=== PATIENT | male | born 1960 | race Caucasian/White ===

== ENCOUNTER → 2019-11-06 | Outpatient (CLI) | payer OTHER ==
--- NOTE | 2019-11-06 11:00 | ECHOF ---
Referral Reason:I50.9 Congestive heart failure MEASUREMENTS -------- HEIGHT: 193.0 cm WEIGHT: 104.3 kg BP: 188/86 RVIDd: 3.1 cm (< 3.3) IVSd: 1.4 cm (0.6 - 1.1) LVIDd: 4.8 cm (3.9 - 5.3) LVPWd: 1.4 cm (0.6 - 1.1) IVSs: 1.7 cm LVIDs: 3.3 cm LVPWs: 1.9 cm LA Diam: 3.6 cm (2.7 - 3.8) LAESV Index (A-L): 24.36 ml/m Ao Diam: 3.2 cm (2.0 - 3.7) AV Cusp: 2.1 cm (1.5 - 2.6) MV EXCURSION: 20.954 mm (> 18.000) MV EF SLOPE: 157 mm/s (70 - 150) EPSS: 0.3 cm MV E Srinivasa: 0.82 m/s MV DecT: 159 ms MV A Srinivasa: 0.90 m/s MV E/A Ratio: 0.92 AV maxP.58 mmHg AV meanP.01 mmHg RAP: 5.00 mmHg RVSP: 31.81 mmHg TAPSE: 18.81 mm FINDINGS -------- Sinus rhythm. This was a technically good study. The left ventricular size is normal. There is moderate concentric left ventricular hypertrophy. O verall left ventricular systolic function is normal with, an EF between 60 - 65 %. The right ventricle is normal in size. Normal LA size by volume 22+/-6 ml/m2. The right atrium is normal in size. Interatrial and interventricular septum intact. The aortic valve is bicuspid. There is mild to moderate aortic valve sclerosis. There is mild aor tic stenosis present. Peak/mean gradient across the Aortic Valve is 29.58mmHg / 17.01mmHg. The mitral valve is normal. Mild tricuspid regurgitation present. Right ventricular systolic pressure is normal at < 35 mmHg. Trace/mild (physiologic) pulmonic regurgitation. The aortic root size is normal. Normal inferior vena cava with normal inspiratory collapse consistent with estimated right atrial pre ssure of 5 mmHg. There is no pericardial effusion. CONCLUSIONS -------- 1. Sinus rhythm. 2. This was a technically good study. 3. The left ventricular size is normal. 4. There is moderate concentric left ventricular hypertrophy. 5. Overall left ventricular systolic function is normal with, an EF between 60 - 65 %. 6. The right ventricle is normal in size. 7. Normal LA size by volume 22+/-6 ml/m2. 8. The right atrium is normal in size. 9. Interatrial and interventricular septum intact. 10. The aortic valve is bicuspid. 11. There is mild to moderate aortic valve sclerosis. 12. There is mild aortic stenosis present. 13. Peak/mean gradient across the Aortic Valve is 29.58mmHg / 17.01mmHg. 14. The mitral valve is normal. 15. Mild tricuspid regurgitation present. 16. Right ventricular systolic pressure is normal at < 35 mmHg. 17. Trace/mild (physiologic) pulmonic regurgitation. 18. The aortic root size is normal. 19. Normal inferior vena cava with normal inspiratory collapse consistent with estimated right atrial pressure of 5 mmHg. 20. There is no pericardial effusion. PHLEBOTOMIST SUPERVISOR/INSTRUCTOR: Ember Mathews RDCS
== END | disposition home or self-care (01) ==
LOC: RADECHMAIN 08:16
PROVIDERS: ATTEND Internal Medicine
DX: I08.2 Rheumatic disorders of both aortic and tricuspid valves (principal); I50.9 Heart failure, unspecified
CPT/HCPCS: 93306

== ENCOUNTER 2020-02-17 14:34 | Emergency (ER) | payer OTHER ==
[2020-02-17 14:39] VITALS: TEMP 98
--- NOTE | 2020-02-17 15:00 | ED ---
Recheck HPI - General Chief Complaint: Recheck/Abnormal Lab/Rx Stated Complaint: Abnormal labs Time Seen by Provider: 02/17/20 14:43 Source: patient Mode of arrival: ambulatory Limitations: no limitations - History of Present Illness Initial Comments: Patient is a 59-year-old male with history of hypertension, diabetes, presenting to the emergency department with an elevated potassium level. Patient states he had his regular 3 month diabetic checkup last week and was found to have slightly elevated potassium. Patient states he had labs drawn again yesterday and he was called today at work stating his potassium was really high and that he needed to go to the ER. Patient denies any complaints at this time. He denies chest pain, shortness of breath, nausea, vomiting, muscle aches, fatigue. He states they recently changed his medications and put him on a different blood pressure medication, nifedipine, as well as took him off of hydrochloro thiazide. Patient states he has been having bilateral lower leg edema but states this has been improving the last week. He denies any recent fever or chills. He has no further complaints at this time. - Related Data Home Medications Medication Instructions Recorded Confirmed Atorvastatin [Lipitor] 40 mg PO HS 02/17/20 02/17/20 Fluticasone [place] [Flonase 1 spr EA NOSTRIL DAILY 02/17/20 02/17/20 Nas[place]] Hydrochlorothiazide [Hydrodiuril] 25 mg PO DAILY 02/17/20 02/17/20 NIFEdipine [NIFEdipine ER] 30 mg PO DAILY 02/17/20 02/17/20 Quinapril HCl 40 mg PO DAILY 02/17/20 02/17/20 amLODIPine [Norvasc] 5 mg PO DAILY 02/17/20 02/17/20 glipiZIDE XL [Glucotrol Xl] 5 mg PO DAILY 02/17/20 02/17/20 sitaGLIPtin PHOS/metFORMIN HCL 1 tab PO BID 02/17/20 02/17/20 [Janumet Xr 50-1,000 mg Tablet] Allergies Allergy/AdvReac Type Severity Reaction Status Date / Time No Known Allergies Allergy Verified 02/17/20 15:32 Review of Systems ROS Statement: Those systems with pertinent positive or pertinent negative responses have been documented in the HPI. ROS Other: All systems not noted in ROS Statement are negative. Past Medical History Past Medical History: Diabetes Mellitus, Hyperlipidemia, Hypertension History of Any Multi-Drug Resistant Organisms: None Reported Past Surgical History: No Surgical Hx Reported Past Psychological History: No Psychological Hx Reported Smoking Status: Never smoker Past Alcohol Use History: None Reported Past Drug Use History: None Reported General Exam - General Exam Comments Initial Comments: GENERAL: Well-appearing, well-nourished and in no acute distress. HEAD: Atraumatic, normocephalic. EYES: Pupils equal round and reactive to light, extraocular movements intact, sclera anicteric, conjunctiva are normal. ENT: TMs normal, nares patent, oropharynx clear without exudates. Moist mucous membranes. NECK: Normal range of motion, supple without lymphadenopathy or JVD. LUNGS: Breath sounds clear to auscultation bilaterally and equal. No wheezes rales or rhonchi. HEART: Tachycardia rate and rhythm without murmurs, rubs or gallops. ABDOMEN: Soft, nontender, normoactive bowel sounds. No guarding, no rebound. No masses appreciated. : Deferred EXTREMITIES: Normal range of motion, no pitting or edema. No clubbing or cyanosis. NEUROLOGICAL: Cranial nerves II through XII grossly intact. Normal speech, normal gait. PSYCH: Normal mood, normal affect. SKIN: Warm, Dry, normal turgor, no rashes or lesions noted. Limitations: no limitations Course Vital Signs 02/17/20 02/17/20 02/17/20 14:36 15:30 16:00 Temperature 98.0 F Pulse Rate 113 H 94 87 Respiratory 20 13 18 Rate Blood Pressure 218/109 199/107 186/103 O2 Sat by Pulse 99 98 98 Oximetry 02/17/20 17:05 Temperature Pulse Rate 85 Respiratory 18 Rate Blood Pressure 166/94 O2 Sat by Pulse 98 Oximetry Medical Decision Making - Medical Decision Making Patient is 59-year-old male here for an elevated potassium on yesterday's lab work. He has no complaints today. He did arrive slightly hypertensive as well as tachycardia. His exam is unremarkable except for some bilateral lower extremity edema which is a chronic issue and has been improving. Lab work was rechecked today and potassium is at 5.3. Rest of his lab work is stable as well. Patient did receive meds which did improve his blood pressure to 166/94. He is no longer tachycardia and continues to have no complaints. He will follow back up with his PCP. He is stable for discharge. Patient is agreement with this plan of care. Return parameters were discussed with the patient he verbalizes understanding. Case discussed with Dr. Cruz. - Lab Data Result diagrams: 02/17/20 14:49 02/17/20 14:49 Lab Results 02/17/20 02/17/20 Range/Units 14:49 14:49 WBC 9.5 (3.8-10.6) k/uL RBC 4.06 L (4.30-5.90) m/uL Hgb 11.8 L (13.0-17.5) gm/dL Hct 35.2 L (39.0-53.0) % MCV 86.5 (80.0-100.0) fL MCH 29.1 (25.0-35.0) pg MCHC 33.6 (31.0-37.0) g/dL RDW 14.6 (11.5-15.5) % Plt Count 265 (150-450) k/uL Neutrophils % 61 % Lymphocytes % 21 % Monocytes % 6 % Eosinophils % 9 % Basophils % 0 % Neutrophils # 5.8 (1.3-7.7) k/uL Lymphocytes # 2.0 (1.0-4.8) k/uL Monocytes # 0.6 (0-1.0) k/uL Eosinophils # 0.9 H (0-0.7) k/uL Basophils # 0.0 (0-0.2) k/uL Sodium 137 (137-145) mmol/L Potassium 5.3 H (3.5-5.1) mmol/L Chloride 107 (98-107) mmol/L Carbon Dioxide 18 L (22-30) mmol/L Anion Gap 12 mmol/L BUN 31 H (9-20) mg/dL Creatinine 1.49 H (0.66-1.25) mg/dL Est GFR (CKD-EPI)AfAm 59 (>60 ml/min/1.73 sqM) Est GFR (CKD-EPI)NonAf 51 (>60 ml/min/1.73 sqM) Glucose 113 H (74-99) mg/dL Calcium 10.1 (8.4-10.2) mg/dL Magnesium 2.1 (1.6-2.3) mg/dL Total Bilirubin 0.4 (0.2-1.3) mg/dL AST 35 (17-59) U/L ALT 34 (4-49) U/L Alkaline Phosphatase 67 (38-126) U/L Total Protein 8.4 H (6.3-8.2) g/dL Albumin 4.9 (3.5-5.0) g/dL - EKG Data EKG Comments: Sinus tachycardia otherwise a normal ECG. No signs of acute ischemia or other changes. Ventricular rate 112, NE interval 156, QT 322. Disposition Clinical Impression: Hypertension Disposition: HOME SELF-CARE Condition: Stable Instructions (If sedation given, give patient instructions): Normal Exam (ED) Additional Instructions: Please return to the Emergency Department if symptoms worsen or any other concerns. Follow-up with PCP. Is patient prescribed a controlled substance at d/c from ED?: No Referrals: Jhoan Cervantes MD [Primary Care Provider] - 1-2 days
[2020-02-17 15:17] LABS: Albumin 4.9 g/dL (3.5-5.0); Calcium 10.1 mg/dL (8.4-10.2); Magnesium 2.1 mg/dL (1.6-2.3); Potassium 5.3 mmol/L (3.5-5.1); Total Bilirubin 0.4 mg/dL (0.2-1.3); Total Protein 8.4 g/dL (6.3-8.2)
[2020-02-17 15:29] LABS: Basophils % (A) 0 %; Eosinophils # (A) 0.9 k/uL (0-0.7); Eosinophils % (A) 9 %; HCT 35.2 % (39.0-53.0); HGB 11.8 gm/dL (13.0-17.5); Lymphocytes % (A) 21 %; MCH 29.1 pg (25.0-35.0); MCHC 33.6 g/dL (31.0-37.0); MCV 86.5 fL (80.0-100.0); Mean Platelet Volume 7.3; Monocytes # (A) 0.6 k/uL (0-1.0); Monocytes % (A) 6 %; Neutrophils # (A) 5.8 k/uL (1.3-7.7); Neutrophils % (A) 61 %; Platelet Count 265 k/uL (150-450); RBC 4.06 m/uL (4.30-5.90); RDW 14.6 % (11.5-15.5); WBC 9.5 k/uL (3.8-10.6)
[2020-02-17] MEDS ORDERED: SODIUM CHLORIDE 0.9% 500 ML 500 ML IV STA (15:38)
[2020-02-17 16:16] VITALS: RESP 18
[2020-02-17 17:06] VITALS: BP 166/94; PULSE 85
== END 2020-02-17 17:30 | disposition home or self-care (01) ==
LOC: EC 14:34
DX: I10 Essential (primary) hypertension (principal); E87.5 Hyperkalemia; R00.0 Tachycardia, unspecified; R60.0 Localized edema; E11.9 Type 2 diabetes mellitus without complications; E78.5 Hyperlipidemia, unspecified; Z79.84 Long term (current) use of oral hypoglycemic drugs; Z79.899 Other long term (current) drug therapy
CPT/HCPCS: 36415; 80053; 83735; 85025; 93005; 96360; 99285